=== PATIENT | female | born 1995 | race Caucasian/White ===

== ENCOUNTER 2017-05-27 01:27 | Emergency (ER) | payer SELFPAY ==
[2017-05-27 05:26] VITALS: BP 99/61
--- NOTE | 2017-05-27 08:08 | ED ---
James Duran Angela, scribed for Gerald Villarreal MD on 05/27/17 at 0508 . Substance Abuse/Use - HPI Summary HPI Summary: This pt is a 21 y/o female presenting to [facility] via EMS for alcohol intoxication. Pt reports she timed herself during the time she was drinking today. She states this has happened to her before, ending up in the ED. Per nurse's note friends were unsure if pt had taken any drugs, and stated that she only had 4 drinks. Denies any drug or tobacco use. No PMHx. - History Of Current Complaint Chief Complaint: EDSubstanceAbuse Stated Complaint: ETOH Hx Obtained From: Patient Onset/Duration of Drug/ETOH Abuse: Hours Ingestion History: Type/Name Of Drug - alcohol, Amount Ingested - unknown Overdose Characteristics: Oral Severity Initially: Moderate Severity Currently: Mild Character: Stuporous Aggravating Factor(s): Nothing Alleviating Factor(s): Nothing Associated Signs And Symptoms: Confused PMH/Surg Hx/FS Hx/Imm Hx Endocrine/Hematology History: Denies: Hx Diabetes Cardiovascular History: Denies: Hx Hypertension - Immunization History Date of Tetanus Vaccine: assumed utd, college student Infectious Disease History: Unable to Obtain/Confirm Infectious Disease History: Denies: Traveled Outside the [place] in Last 30 Days - Family History Known Family History: Positive: Unknown - pt could not give FHx due to intoxication - Social History Alcohol Use: Occasionally Substance Use Type: Reports: None Smoking Status (MU): Never Smoked Tobacco Review of Systems Constitutional: Other - Alcohol intoxication Negative: Fever, Chills Eyes: Negative ENT: Negative Cardiovascular: Negative Respiratory: Negative All Other Systems Reviewed And Are Negative: Yes Physical Exam - Summary Physical Exam Summary: Appearance: Well-appearing, Well-nourished Skin: Warm Eyes: Normal ENT: Normal Neck: Supple, nontender Respiratory: Clear to auscultation Cardiovascular: Normal S1, S2. No murmurs. Normal distal pulses. Abdomen: Soft, nontender Musculoskeletal: Normal, Strength/ROM Intact Neurological: Normal, A&Ox3 Psychiatric: Normal Triage Information Reviewed: Yes Vital Signs On Initial Exam: Initial Vitals Temp Pulse Resp BP Pulse Ox 97.7 F 80 16 87/43 100 05/27/17 01:48 05/27/17 01:48 05/27/17 01:48 05/27/17 01:48 05/27/17 01:48 Vital Signs Reviewed: Yes Diagnostics - Vital Signs Vital Signs Temp Pulse Resp BP Pulse Ox 05/27/17 03:30 87 81/48 98 05/27/17 03:00 86 76/60 99 05/27/17 02:30 105 98/61 99 05/27/17 02:09 84 99 05/27/17 01:48 97.7 F 80 16 87/43 100 - Laboratory Lab Statement: Any lab studies that have been ordered have been reviewed, and results considered in the medical decision making process. Course/Dx - Course Assessment/Plan: feels better on reeval, drastically improved mental status, clnically sober, instructed to exercise caution when drinking. agrees to and understands dc instructions. alert and oriented. - Diagnoses Provider Diagnoses: Alcohol intoxication Discharge - Discharge Plan Condition: Improved Disposition: HOME Patient Education Materials: Alcohol Intoxication (ED) Referrals: [facility] [place] [facility] [Outside] Additional Instructions: PLEASE MAKE AN APPOINTMENT FIRST THING IN THE MORNING TO BE SEEN BY YOUR PRIMARY CARE PROVIDER WITHIN 1 WEEK. PLEASE RETURN TO THE ED FOR ANY WORSENING OR CONCERNING SYMPTOMS. The documentation as recorded by the James krause Angela accurately reflects the service I personally performed and the decisions made by me, Gerald Villarreal MD.
== END 2017-05-27 05:25 | disposition home or self-care (01) ==
LOC: ED 01:27
DX: F10.129 Alcohol abuse with intoxication, unspecified (principal); R41.0 Disorientation, unspecified
CPT/HCPCS: 99282